=== PATIENT | female | born 1950 | race Two or more races ===

== ENCOUNTER 2020-01-01 07:19 | Outpatient (CLI) | payer OTHER | END 2020-01-01 07:22 | disposition home or self-care (01) | LOC: NUCLEAR 07:19 | PROVIDERS: ATTEND Internal Medicine Cardiovascular Disease | DX: R07.89 Other chest pain (principal); R94.31 Abnormal electrocardiogram [ECG] [EKG] | CPT/HCPCS: 78452; 93017; A9500 ==